=== PATIENT | male | born 1970 | race Caucasian/White ===

== ENCOUNTER 2017-04-25 20:28 | Emergency (ER) | payer BC, OTHER ==
[2017-04-25] MEDS ORDERED: SODIUM CL 0.9% 20 ML VIAL ONE (21:47)
[2017-04-25] MEDS ORDERED: methylPREDNISolone SOD SUCC 125 MG/2 ML VIAL ONE (21:47)
[2017-04-25] MEDS ORDERED: RANITIDINE 50 MG/2 ML VIAL ONE (21:47)
[2017-04-25] MEDS ORDERED: methylPREDNISolone SOD SUCC 125 MG/2 ML VIAL IVP ONE (21:47)
[2017-04-25] MEDS ORDERED: ALBUTEROL 3 ML DEYVIAL ONE (21:47)
[2017-04-25] MEDS ORDERED: RANITIDINE 50 MG/2 ML VIAL IVP ONE (21:47)
--- NOTE | 2017-04-25 22:31 | EDPHY ---
H & P Time Seen by Provider: 04/25/17 20:38 HPI/ROS: CHIEF COMPLAINT: Bee sting, facial swelling HISTORY OF PRESENT ILLNESS: 46-year-old male presents to the emergency department with a bee sting to his upper lip. The patient was cycling just prior to arrival and was stung in his upper lip. He was thus initially seen in urgent care and was sent to the emergency department for evaluation. He took 50 mg of Benadryl just prior to arrival. He denies dysphagia. Denies chest pain or difficulty breathing. Denies pruritic rash. He had similar symptoms when he was stung by a bee few years ago in his right lower leg. REVIEW OF SYSTEMS: Constitutional: No fever, no chills. Eyes: No double or blurry vision. ENT: No sore throat. Respiratory: No cough, no shortness of breath. Cardiac: No chest pain. Gastrointestinal: No abdominal pain, vomiting or diarrhea. Genitourinary: No dysuria. Musculoskeletal: No neck or back pain. Skin: No rashes. Neurological: No headache. Past Medical/Surgical History: Negative Social History: Smoking Status: Never smoked Physical Exam: General Appearance: Alert, no distress. Diffuse facial swelling from his upper lip extending up into his lower eyelids. Eyes: Pupils equal and round. Extraocular motions are all intact. ENT: Mouth: Mucous membranes moist. No uvular swelling. No muffled voice. Respiratory: No wheezing, rhonchi, or rales, lungs are clear to auscultation. Cardiovascular: Regular rate and rhythm. Gastrointestinal: Abdomen is soft and nontender, no masses, no rebound or guarding, bowel sounds normal. Neurological: Alert and oriented x 3, cranial nerves II through XII grossly intact Skin: Warm and dry, no rashes. No evidence of retained stinger. Musculoskeletal: Nontender to palpate along the cervical, thoracic or lumbar spine. Neck is supple. Extremities: Full range of motion and no peripheral edema. Psychiatric: Patient is oriented X 3, there is no agitation. Constitutional: Initial Vital Signs Heart Rate 56 L 04/25/17 20:29 Respiratory Rate 18 04/25/17 20:29 Blood Pressure 139/93 H 04/25/17 20:29 O2 Sat (%) 97 04/25/17 20:29 O2 Delivery Mode Room Air Allergies/Adverse Reactions: No Known Allergies Allergy (Unverified 06/28/10 16:12) Home Medications: Medication Instructions Recorded EPINEPHRINE [EPIPEN] 0.3 mg IM ONCE #2 syr 04/25/17 predniSONE 60 mg PO DAILY 3 Days 04/25/17 Medical Decision Making ED Course/Re-evaluation: Patient was given 0.3 mg of IM epinephrine. He was also given 50 mg of IV ranitidine, 125 mg of IV Solu-Medrol, 25 mg of IV Benadryl. He was observed for over 2 hours in the emergency department and was feeling much better. Was discharged with a prescription for EpiPen. I do not think that the patient needs admission to the hospital. She is comfortable being discharged home. Differential Diagnosis: Including but not limited to acute allergic reaction, anaphylaxis, retained foreign body - Data Points Medications Given: Discontinued Medications Diphenhydramine HCl (Benadryl Injection) 25 mg IVP EDNOW ONE Stop: 04/25/17 21:48 Last Admin: 04/25/17 20:55 Dose: 25 mg Epinephrine HCl (Epinephrine) 0.3 mg IM EDNOW ONE Stop: 04/25/17 21:48 Last Admin: 04/25/17 20:55 Dose: 0.3 mg Methylprednisolone Sodium Succinate (Solu-Medrol) 125 mg IVP EDNOW ONE Stop: 04/25/17 21:48 Last Admin: 04/25/17 20:53 Dose: 125 mg Ranitidine HCl (Zantac) 50 mg IVP EDNOW ONE Stop: 04/25/17 21:48 Last Admin: 04/25/17 21:00 Dose: 50 mg Departure - Departure Disposition: Home, Routine, Self-Care Clinical Impression: Allergic reaction to bee sting Condition: Good Instructions: General Allergic Reaction (ED) Additional Instructions: Prednisone daily for 3 additional days. You may start this medication tomorrow since your given IV steroids tonight in the emergency department. Benadryl 50 mg every 6 hours as needed for itching or swelling. Caution, this medication will make you drowsy. Carry an EpiPen with you at all times. Return to the emergency department if you developed difficulty breathing or swallowing, rash, or if you feel worse in any way. Referrals: Jamil Neumann MD [Primary Care Provider] - As per Instructions Prescriptions: EPINEPHRINE [EPIPEN] 0.3 mg IM ONCE #2 syr predniSONE 60 mg PO DAILY 3 Days
[2017-04-25 22:47] VITALS: BP 118/66; PULSE 60; RESP 18; TEMP 98.2; O2SAT 94
== END 2017-04-25 22:46 | disposition home or self-care (01) ==
DX: T63.441A Toxic effect of venom of bees, accidental (unintentional), initial encounter (principal); X58.XXXA Exposure to other specified factors, initial encounter; Y99.8 Other external cause status
CPT/HCPCS: 96374; J0171; J1200; J2780